=== PATIENT | female | born 1995 ===

== ENCOUNTER 2018-01-15 17:28 | Emergency (ER) | payer MEDICAID ==
[2018-01-15 17:42] VITALS: BMI 28.3
[2018-01-15 19:03] LABS: SQUAMOUS EPITHIAL 3 /hpf (0-5); URINE BACTERIA RARE (<OCC); URINE BILIRUBIN NEGATIVE (NEGATIVE); URINE BLOOD NEGATIVE (NEGATIVE); URINE CLARITY SLIGHTY-CLOUDY (Clear); URINE COLOR YELLOW (YELLOW); URINE GLUCOSE (UA) NEG (Normal); URINE LEUKOCYTE ESTERASE MOD Leu/uL (Negative); URINE PROTEIN NEGATIVE (NEGATIVE); URINE UROBILINOGEN 0.2-1.0 mg/dL (0.2-1.0)
[2018-01-16 00:49] VITALS: BP 106/70; PULSE 75; RESP 20; O2SAT 100
== END 2018-01-15 20:33 | disposition home or self-care (01) ==
LOC: EDBD → H.EROB2 17:28 → MERGE 17:28 → UNMERGE 17:28 → H.EROB2 20:33
DX: O26.93 Pregnancy related conditions, unspecified, third trimester (principal); R10.2 Pelvic and perineal pain; Z3A.30 30 weeks gestation of pregnancy; N89.8 Other specified noninflammatory disorders of vagina